=== PATIENT | male | born 1955 ===

== ENCOUNTER 2020-07-14 06:28 | Observation (INO) ==
--- NOTE | 2020-06-29 13:57 | PAT Medication Instructions ---
Medication Instructions Date of Service June 29, 2020 Home Medications atenolol 25 mg tablet 25 mg PO QPM calcium polycarbophil 625 mg tablet 1,250 mg PO QAM cholecalciferol (vitamin D3) 10 mcg (400 unit) capsule 10 mcg PO QAM gabapentin 100 mg capsule 100 mg PO BID levothyroxine 88 mcg tablet 88 mcg PO QAM lisinopril 5 mg tablet 5 mg PO QAM mecobalamin (vitamin B12) 5,000 mcg lozenge 5,000 mcg PO QAM acetaminophen [Tylenol Extra Strength] 1,000 mg PO Q6H PRN latanoprost (PF) 1 drp OPHTHALMIC (EYE) HS DO NOT take the morning of surgery calcium polycarbophil 625 mg tablet 1,250 mg PO QAM cholecalciferol (vitamin D3) 10 mcg (400 unit) capsule 10 mcg PO QAM lisinopril 5 mg tablet 5 mg PO QAM mecobalamin (vitamin B12) 5,000 mcg lozenge 5,000 mcg PO QAM Take morning of surgery With a small sip of water, OTHERWISE NOTHING TO EAT OR DRINK AFTER MIDNIGHT: gabapentin 100 mg capsule 100 mg PO BID levothyroxine 88 mcg tablet 88 mcg PO QAM acetaminophen [Tylenol Extra Strength] 1,000 mg PO Q6H PRN (if needed) Take evening before surgery atenolol 25 mg tablet 25 mg PO QPM gabapentin 100 mg capsule 100 mg PO BID acetaminophen [Tylenol Extra Strength] 1,000 mg PO Q6H PRN (if needed) latanoprost (PF) 1 drp OPHTHALMIC (EYE) HS Other Notes If you have any questions please call us at [phone] or [phone] or [phone] or [phone]
--- NOTE | 2020-07-04 12:55 | Anesthesiology Consultation ---
Date of Service July 04, 2020 Assessment & Plan (1) Encounter for pre-operative examination: COVID Status: As of 07/04 assessment, patient denies travel to endemic area, known exposure/sick contacts, or symptoms of COVID19. Patient instructed that they and their household members must follow strict social distancing guidelines, wear a mask in public and avoid travel/events/gatherings for 14 days prior to surgery -- specifically denies Thanksgiving plans. Preoperative COVID19 testing to be completed prior to surgery per surgeon's arrangements (to be done 07/08 at [facility]). Patient made aware to self-isolate as much as possible between COVID testing and surgery. Chart Review Chart Review: Acceptable Risk for Surgery and Patient seen in Pre Admission Testing Teaching & Discussion Instructed NPO after midnight before surgery, except medications with 15 cc of water. Medication instructions provided according to the PAT guidelines. History Surgery Operation Date: 07/14/20 13:45 Proposed Procedures p Right Total Knee Arthroplasty - Ryley Iniguez MD Height/Weight Height: 5 ft 7 in Weight: 105.6 kg Allergies Allergy/AdvReac Type Severity Reaction Status Date / Time No Known Allergies Allergy Verified 06/29/20 11:06 Medications Home Medications Medication Instructions Recorded Confirmed Last Taken atenolol 25 mg tablet 25 mg PO QPM 06/24/20 06/29/20 Unknown calcium polycarbophil 625 mg tablet 1,250 mg PO QAM 06/24/20 06/29/20 Unknown cholecalciferol (vitamin D3) 10 10 mcg PO QAM 06/24/20 06/29/20 Unknown mcg (400 unit) capsule gabapentin 100 mg capsule 100 mg PO BID 06/24/20 06/29/20 Unknown levothyroxine 88 mcg tablet 88 mcg PO QAM 06/24/20 06/29/20 Unknown lisinopril 5 mg tablet 5 mg PO QAM 06/24/20 06/29/20 Unknown mecobalamin (vitamin B12) 5,000 5,000 mcg PO QAM 06/24/20 06/29/20 Unknown mcg lozenge acetaminophen [Tylenol Extra 1,000 mg PO Q6H PRN 06/29/20 06/29/20 Unknown Strength] latanoprost (PF) 1 drp OPHTHALMIC (EYE) HS 06/29/20 06/29/20 Unknown Past Medical History Medical History Bilateral primary osteoarthritis of knee Hemorrhoids Hepatitis C HX TREATED BLOOD LEVELS NORMAL Hypertension Hypothyroidism Exercise / Class Metabolic Activity II 4-5 Yardwork/Stairs/Walk up hill Past Family History Family History (Updated 06/29/20 @ 11:14 by Dolores Ly RN) Father Family history of diabetes mellitus Past Surgical History Surgical History History of cholecystectomy History of colonoscopy Past Anesthesia History No Hx of Anesthesia Complications and No Family Hx of Anesthesia Complications History of PONV No Hx of PONV and Hx of Motion Sickness Social History Smoking Status: Former smoker Do You Dip or Chew Tobacco: No Smoking End Date: QUIT 1997 Hx Alcohol Use: No Hx Substance Use: No Review of Systems Pt denies any recent chest pain, shortness of breath, palpitations, cough, fever, URI. +occ diet-dependent acid reflux. Physical Exam Vital Signs BP: 121/70 P: 65bpm SPO2: 96% RA T: 98.0 F R: 12 ENMT Mouth: + poor dentition and + chipped teeth; no dental restorations and no loose teeth Thyromental Distance: > or= 3.5 Finger Breadths Mallampati Class: III Neck + short neck, + limited neck extension (mildly) and + facial hair (short singh and mustache) Respiratory normal respiratory effort, lungs clear to auscultation + prolonged expiratory phase Cardiovascular RRR, no murmur, no edema Vessels: no carotid bruit Testing Laboratory Results 07/04/20 13:03 07/04/20 13:03 PT 10.8 Seconds (9.0-12.0) 07/04/20 13:03 INR 1.0 (0.9-1.1) 07/04/20 13:03 APTT 28.8 Seconds (21.0-31.0) 07/04/20 13:03 Blood Type A Positive 07/04/20 13:03 Antibody Screen NEGATIVE 07/04/20 13:03 Electrocardiogram Date: 07/04/20 Findings: + SB @ (57bpm) *unconfirmed Chest X-Ray Date: 07/04/20 Findings: + NAD
--- NOTE | 2020-07-04 13:26 | XRay Report ---
XR chest Pre-admission PA/Lat HISTORY: 64 years-old Male pat preoperative exam. No acute chest complaints COMPARISON: None TECHNIQUE: PA and lateral views of the chest FINDINGS: Cardiomediastinal and hilar silhouettes are within normal limits. No pneumothorax, pleural effusion, overt pulmonary edema or airspace consolidation typical for pneumonia. There is minimal inferior segm ent lingular scarring/atelectasis. Degenerative changes of the shoulders and spine. Surgical clips pr oject over the upper abdomen. IMPRESSION: No acute process. ACT 112: Negative or not required by law. The above report was generated using voice recognition software. It may contain grammatical, syntax o r spelling errors. Electronically signed by: Cale Ruiz M.D. 07/04/2020 1:25 PM
[2020-07-04 14:24] LABS: Basophils # (auto) 0.02 K/uL (0-0.2); Basophils % (auto) 0.2 %; Eosinophils # (auto) 0.12 K/uL (0-0.5); Eosinophils % (auto) 1.3 %; Hemoglobin 15.3 g/dL (14.0-18.0); Immature Granulocytes # (auto) 0.05 K/uL (0.00-0.02); Immature Granulocytes % (auto) 0.5 %; Lymphocytes # (auto) 2.13 K/uL (1.2-3.4); Lymphocytes % (auto) 22.3 %; Mean Corpuscular Hemoglobin 29.3 pg (25-34); Mean Corpuscular Hgb Conc 32.6 g/dL (32-36); Mean Platelet Volume 10.3 fL (7.4-10.4); Monocytes # (auto) 0.85 K/uL (0.11-0.59); Monocytes % (auto) 8.9 %; Neutrophils # (auto) 6.39 K/uL (1.4-6.5); Neutrophils % (auto) 66.8 %; Platelet Count 195 K/uL (130-400); RDW Standard Deviation 42.5 fL (36.4-46.3); Red Blood Count 5.22 M/uL (4.7-6.1); White Blood Count 9.56 K/uL (4.8-10.8)
[2020-07-04 14:34] LABS: BUN Creatinine Ratio 17.9 (10-20); Calcium 9.6 mg/dl (8.5-10.1); Creatinine Clr Calc Pharmacy 54.7 ml/min; Est GFR (African American) 53.7; Est GFR (Non-African American) 46.3; Potassium 4.7 mmol/L (3.5-5.1)
[2020-07-04 14:36] LABS: Partial Thromboplastin Time 28.8 Seconds (21.0-31.0); Prothrombin Time 10.8 Seconds (9.0-12.0)
--- NOTE | 2020-07-05 06:17 | Electrocardiogram Report ---
Test Reason : Blood Pressure : / mmHG Vent. Rate : 057 BPM Atrial Rate : 057 BPM P-R Int : 142 ms QRS Dur : 086 ms QT Int : 422 ms P-R-T Axes : 063 071 063 degrees QTc Int : 410 ms Sinus bradycardia Otherwise normal ECG No previous ECGs available Confirmed by Harish Sen ([id number]) on 07/05/2020 6:17:07 AM Referred By: Ryley Iniguez Confirmed By:Harish Sen
[~2020-07-14 06:28] MED LIST: ACETAMINOPHEN 500 MG TAB PO SCH; BUPIVACAINE LIPOSOME/PF 266 MG, BUPIVACAINE/EPINEPHRINE 50 ML, SODIUM CHLORIDE 0.9% 30 ... INFIL SCH; FAMOTIDINE 20 MG TAB PO SCH; GABAPENTIN 300 MG CAP PO SCH; LR 15ML/HR IV SCH; LR 500ML BOLUS, THEN 15ML/HR IV SCH; ROPIVACAINE 0.5% HCL/PF 150 MG, BUPIVACAINE 0.5% MPF 30 ML, EPINEPHrine 30MG/30ML (OR U... INSTIL SCH; TRANEXAMIC ACID 1,000 MG **IV Intra-op IV SCH; ceFAZolin 2000MG 2,000 MG/15 ML SYR IV SCH
[2020-07-14] MEDS ORDERED: BUPIVACAINE 0.5 % 5 MG/1 ML PF 10ML VIAL ONE (06:42)
--- NOTE | 2020-07-14 07:01 | History & Physical Bridge Note ---
Date of Service July 14, 2020 History & Physical Bridge Note I have examined the patient, reviewed the History & Physical and in the interval since the performance of the History & Physical I have noted the following changes of clinical significance: no changes noted
[2020-07-14] MEDS ORDERED: MIDAZOLAM HCL 1 MG/ML 2ML VIAL ONE (08:15)
[2020-07-14] MEDS ORDERED: fentaNYL citrate 100 MCG/2 ML VIAL ONE (08:15)
[2020-07-14] MEDS ORDERED: BUPIVACAINE LIPOSOME 1.3% 266 MG/20 ML VIAL ONE (09:19)
[2020-07-14] MEDS ORDERED: SODIUM CHLORIDE 0.9% PF 50 ML VIAL ONE (09:19)
[2020-07-14] MEDS ORDERED: EPINEPHrine INJ 1 MG/ML AMP ONE (09:20)
[2020-07-14] MEDS ORDERED: BACITRACIN INJ 50,000 UNIT VIAL ONE (09:20)
[2020-07-14] MEDS ORDERED: BUPIVACAINE 0.25% 30 ML VIAL ONE (09:21)
[2020-07-14] MEDS ORDERED: PROPOFOL IV EMULSION 10 MG/ML 20 ML VIAL IV ONE ×2 (09:48→11:08)
[2020-07-14] MEDS ORDERED: DEXAMETHASONE SOD INJ 4 MG/ML VIAL ONE (09:48)
[2020-07-14] MEDS ORDERED: ONDANSETRON INJ 2 MG/ML 2 ML VIAL ONE (09:48)
[2020-07-14] MEDS ORDERED: LIDOCAINE HCL 2% 2 ML VIAL/AMP(20MG/ML) INFIL ONE (09:48)
--- NOTE | 2020-07-14 11:18 | Post Operative Brief Note ---
PG Immediate Post Op with CF Date of Surgery July 14, 2020 Pre & Post Diagnosis Operation Date: 07/14/20 09:20 Pre-Op Diagnosis: Right Knee Advanced Degenerative Joint Disease Post-Op Diagnosis: Right Knee Advanced Degenerative Joint Disease I identified the patient and participated in the time-out.: Yes Procedure Operation Date: 07/14/20 09:20 Actual Procedures p Right Total Knee Arthroplasty(Right) - Ryley Iniguez MD Surgeon Ryley Iniguez MD Driveway Attendant LEANNE Galindo Estimated Blood Loss 50 Findings Consistent with Post-Op Diagnosis Fluids 1400 cc Specimens Specimen Description: A. Right Knee Bone and Tissue Drains Rosen Catheter Anesthesia Type Spinal MAC Complications none Disposition Accompanied Patient To Recovery: No Disposition: Recovery Room
--- NOTE | 2020-07-14 11:39 | Operative Report ---
Post Operative Report Pre & Post Diagnosis Operation Date: 07/14/20 09:20 Pre-Op Diagnosis: Right Knee Advanced Degenerative Joint Disease Post-Op Diagnosis: Right Knee Advanced Degenerative Joint Disease I identified the patient and participated in the time-out.: Yes Procedure Operation Date: 07/14/20 09:20 Actual Procedures p Right Total Knee Arthroplasty(Right) - Ryley Iniguez MD Surgeon Ryley Iniguez MD Geospatial Information Scientist LEANNE Galindo Estimated Blood Loss 50 Findings Consistent with Post-Op Diagnosis Operative findings revealed advanced right knee DJD with extensive grade 4 [id number] disease of the medial compartment and less extensive but significant grade 4 changes the patellofemoral compartment. He had a varus deformity to his knee. Moderate sized knee joint effusion. Fluids 1400 cc. Specimens Right knee sent for pathology. 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 He has been through extensive conservative care through the [facility]. He failed all this treatment. He continued to have persistent limiting knee pain and discomfort. He elected to see with a right total knee arthroplasty. Description of Procedure Operative implants consisted of: 1. Biomet Vanguard size 65 right posterior stabilized femoral component. 2. Biomet size 75 tibial tray. 3. 10 mm posterior stabilized polyethylene insert. 4. 31 x 8 all polypatella. The patient was taken to the operating identified placed in the operating table supine position but all contact areas were properly padded. IV antibiotics 5 by anesthesia team. A spinal anesthetic and abductor canal block had provided in the holding area. Rosen catheter was placed in sterile fashion. A right thigh turn was then placed in the right lower extremity was then prepped and draped in the usual sterile fashion. The right leg was elevated exsanguinated with use of an Esmarch and turns placed at 300 mmHg. An anterior approach to the right knee was then performed to longitudinal incision centered over the patella. Sharp dissection got through subcutaneous tissues down to the extensor mechanism. A medial parapatellar arthrotomy incision was made. Some subperiosteal dissection was carried out medially for the fat pad was dissected from each patella tendon. Lateral patellofemoral ligament was released. Patella was subluxated laterally and the knee was flexed. The osteophytes were taken off distal femur. The ACL and PCL were then released from distal femur and the tibia subluxated anteriorly. External tibial alignment jig was then placed in the interface the tibia and adjusted 14 mm medially. Proximal tibial cut was made remove about a millimeter or 2 of bone from most deficient aspect medial tibial plateau. Tibia sized to a size 75. Some osteophytes taken off medial and posterior medially. Attention drawn to the femur. The distal femur was entered with a sharp drop with intramedullary canal was suction. A right 6 degree valgus cutting guide was placed. Distal femoral cutting block was pinned in place but distal femoral cut was made to take an additional 3 mm bone off distal femur. The femur was then sized to a size 65. The AP cutting block was pinned parallel to the epicondylar axis which was 3 degrees of external rotation with anterior cut, anterior chamfer, posterior cut, posterior chamfer cuts were made. The box cutting guide was placed in the just slight lateral and the box cut was made. The knee was flexed. The remnants of the medial lateral menisci were excised. The osteophytes were taken off the posterior aspect of the femur. A trial femoral component was placed. The tibial tray was pinned in maximum external rotation and the drill and stem punch were used to create defect in proximal tibia for the tibial tray. Knee was then trialed and the 10 mm insert fit most appropriately. Attention drawn the patella. The patella was cleaned of all soft tissues. Patella thickness measured 22 mm in thickness and was cut down to 14. Sized to a size 31 patella. Locals were drilled for 31 patella. Lateral osteophyte is moved. Patella button was placed. The knee was taken through range of motion patella tracked nicely with no thumbs test. Attention drawn to placing permanent components. All trial components were removed. A bone plug was placed in the distal femur limit blood loss put a double batch [place]os G cement was mixed. Biomet Providence Therapyguard size 65 right posterior stabilized femoral component, size 75 tibial tray, a 10 mm posterior stabilized polyethylene insert, and a 31 x 8 all polypatella then cemented in place. Knee was brought out in full extension total cement hardened. Final cement checkup then performed. Pericapsular tissues were injected with total 100 cc of combination of 20 cc of Exparel, 30 cc normal saline, 50 cc of quarter percent Marcaine with epinephrine. Patient did receive 1 g tranexamic acid. The tourniquet was then let down for final tourniquet time 52 minutes. Hemostasis assured use electrocautery. Extensor mechanism closed with combination 1 PDS suture #1 Vicryl suture in [id number] fashion. Extensor mechanism checked found to be intact the subcutaneous tissue then closed with 2 Dexon suture in a buried knot fashion skin was closed skin jordyn. Leg was then cleaned and dried and sterile dressed with Xeroform, 4 x 4's, sterile cast padding, Tonio bandage were applied. Patient then transferred to the recovery room in stable condition. The patient tolerated the procedure well and there were no complications. Ernie Galindo, my physician assistant farm operations manager, was present for the entire procedure. His assistance was essential and required for appropriate patient positioning, prepping and draping, surgical exposure, performing the technical details of the operation, placement the implants, closure of the wound, and placement of the sterile bandage. I attest to the content of the Intraoperative Record and any orders documented therein. Any exceptions are noted below.
--- NOTE | 2020-07-14 11:51 | XRay Report ---
RIGHT KNEE 2 VIEWS History: Right total knee arthroplasty. Degenerative arthritis. Postop. FINDINGS: The patient is status post a right total knee arthroplasty. The hardware is intact. No frac ture or dislocation. Skin jordyn are in place. IMPRESSION: Right total knee arthroplasty. No evidence for hardware complication. ACT 112: Negative or not required by law. Electronically signed by: Richmond Abdalla M.D. 07/14/2020 11:50 AM
[2020-07-14] MEDS ORDERED: ATROPINE SULFATE 0.1 MG/ML 10ML SYR IV PRN (12:18)
[2020-07-14] MEDS ORDERED: fentaNYL citrate 100 MCG/2 ML VIAL IV PRN (12:18)
[2020-07-14] MEDS ORDERED: ONDANSETRON INJ 2 MG/ML 2 ML VIAL IV PRN ×2 (12:18→12:51)
[2020-07-14] MEDS ORDERED: ePHEDrine sulfate 50 MG/ML AMP IV PRN (12:18)
--- NOTE | 2020-07-14 12:19 | Anesthesiology Progress Note ---
Date of Service July 14, 2020 Anesthesia Post Procedure Vital Signs Vital Signs: Temp Pulse Pulse Resp BP BP Pulse Ox 07/14/20 12:10 56 L 14 122/56 L 100 07/14/20 12:00 49 L 10 L 113/67 100 07/14/20 11:50 51 L 10 L 117/66 100 07/14/20 11:40 50 L 15 129/72 99 07/14/20 11:30 51 L 18 114/66 100 07/14/20 11:23 97.9 F 58 L 16 116/60 99 07/14/20 07:55 59 L 18 135/78 97 07/14/20 07:29 98.1 F 67 18 130/84 95 Pain Intensity Right Hand: Pain Intensity: 7 Transfer of Care Handoff Completed per policy Notes Mental Status: alert / awake / arousable and participated in evaluation Patient Amnestic to Procedure: Yes Nausea / Vomiting: adequately controlled Pain: adequately controlled Airway Patency, RR, SpO2: stable & adequate BP & HR: stable & adequate Hydration State: stable & adequate Neuraxial Anesthesia: was administered and sensory block is resolving Anesthetic Complications: no major complications apparent and Pt Satisfied with anesthetic care
[2020-07-14] MEDS ORDERED: METOCLOPRAMIDE HCL INJ 5 MG/ML 2 ML VIAL IV PRN (12:51)
[2020-07-14] MEDS ORDERED: TAMSULOSIN HCL 0.4 MG CAP PO PRN (12:51)
[2020-07-14] MEDS ORDERED: ALUMINUM/MAGNESIUM SUSP 30 ML UDC PO PRN (12:51)
[2020-07-14] MEDS ORDERED: NALOXONE HCL 0.4 MG/1 ML VIAL/CARP IV PRN (12:51)
[2020-07-14] MEDS ORDERED: bisacodyL 10 MG SUPP PR PRN (12:51)
[2020-07-14] MEDS ORDERED: MAGNESIUM HYDROXIDE SUSP 30 ML UDC PO PRN (12:51)
[2020-07-14] MEDS ORDERED: NO NSAIDS SCH (13:00)
[2020-07-14] MEDS: SODIUM CHLORIDE 0.9% 1000ML 1,000 ML IV SCH ×2 (13:32→21:07)
[2020-07-14] MEDS: ACETAMINOPHEN 500 MG TAB PO SCH ×2 (14:54→20:55)
[2020-07-14] MEDS: Scopolamine CHECK PATCH PLACEMENT SCH ×2 (15:39→23:18)
[2020-07-14] MEDS: oxyCODONE HCL IR 5 MG TAB (IMMEDIATE RELEASE) PO PRN ×2 (16:33→23:30)
[2020-07-14] MEDS: FERROUS GLUCONATE 324 MG TAB PO SCH (16:34)
[2020-07-14] MEDS: ASCORBIC ACID 500 MG TAB PO SCH (16:34)
[2020-07-14] MEDS: ceFAZolin 2000MG 2,000 MG/15 ML SYR IV SCH (17:25)
[2020-07-14] MEDS ORDERED: TRANEXAMIC ACID / 0.7% NACL 1,000 MG/100 ML BAG IV SCH (17:30)
--- NOTE | 2020-07-14 18:00 | Progress Notes ---
DATE: 07/14/2020 SUBJECTIVE: A 64-year-old gentleman is postop from right knee replacement. He is doing well. Really not having much pain yet. No chest pain or shortness of breath. Not feeling dizzy or lightheaded. He did take one oxycodone tablet and is doing well with that. OBJECTIVE: VITAL SIGNS: Temperature 36.8. Vital signs stable. GENERAL: Shows a pleasant, middle-aged male. He is sitting up in bed and talking on the phone when I walked in this evening. LUNGS: Clear to auscultation. HEART: Regular rate and rhythm. ABDOMEN: Soft, nontender, nondistended. EXTREMITIES: Grossly neurovascularly intact except as follows: Examination of the right leg reveals the leg to be well aligned. Dressing is clean, dry, and intact. He can dorsiflex and plantarflex his foot appropriately. He has got brisk refill. X-RAYS: X-rays of the right knee from recovery room are reviewed. It shows right cemented posterior stabilized total knee arthroplasty. Components looked to be in good position. No signs of problems. ASSESSMENT: A 64-year-old gentleman postoperative from right knee replacement, doing well. Pain is controlled. He is neurologically intact. PLAN: 1. DVT prophylaxis including thigh-high TEDs, SCDs, and aspirin twice a day. 2. PT/OT. Weight bear as tolerated. Right total knee protocol. 3. Pain control, doing well with current pain regimen. 4. Disposition: He is hoping to be discharged to home with likely some home health once adequately recovered and medically stable.
[2020-07-14] MEDS: HYDROmorphone INJ 0.5 MG/0.5 ML SYR IV PRN (19:54)
[2020-07-14] MEDS: TAPENTADOL HCL ER 50 MG TABCR PO SCH (20:54)
[2020-07-14] MEDS: GABAPENTIN 100 MG CAP PO SCH (20:54)
[2020-07-14] MEDS: ASPIRIN 81 MG ECTAB PO SCH (20:56)
[2020-07-14] MEDS: ATENOLOL 25 MG TABLET PO SCH (20:56)
[2020-07-14] MEDS: SENNA 8.6 MG TAB PO SCH (20:56)
[2020-07-14] MEDS: DOCUSATE SODIUM 100 MG CAP PO SCH (20:56)
[2020-07-14] MEDS: LATANOPROST 0.005% OP SOLN 2.5 ML BTL OP SCH (21:04)
[2020-07-15] MEDS: ceFAZolin 2000MG 2,000 MG/15 ML SYR IV SCH (00:28)
[2020-07-15] MEDS: HYDROmorphone INJ 0.5 MG/0.5 ML SYR IV PRN (04:23)
[2020-07-15] MEDS: LEVOTHYROXINE SODIUM 88 MCG TABLET PO SCH (04:23)
[2020-07-15] MEDS: ACETAMINOPHEN 500 MG TAB PO SCH ×3 (04:23→20:59)
[2020-07-15 06:09] LABS: Hematocrit (blood only) 42.5 % (42-52); Hemoglobin 13.7 g/dL (14.0-18.0); Mean Corpuscular Hemoglobin 29.1 pg (25-34); Mean Corpuscular Hgb Conc 32.2 g/dL (32-36); Mean Corpuscular Volume 90.2 fL (80-100); Mean Platelet Volume 9.9 fL (7.4-10.4); Platelet Count 170 K/uL (130-400); RDW Coefficient of Variation 12.9 % (11.5-14.5); RDW Standard Deviation 42.7 fL (36.4-46.3); Red Blood Count 4.71 M/uL (4.7-6.1); White Blood Count 16.68 K/uL (4.8-10.8)
[2020-07-15 06:37] LABS: BUN Creatinine Ratio 11.3 (10-20); Calcium 8.6 mg/dl (8.5-10.1); Creatinine Clr Calc Pharmacy 44.3 ml/min; Est GFR (African American) 42.2; Est GFR (Non-African American) 36.4; Potassium 4.6 mmol/L (3.5-5.1)
[2020-07-15] MEDS ORDERED: dexAMETHasone 4 MG TAB PO SCH (08:00)
[2020-07-15] MEDS: TAPENTADOL HCL ER 50 MG TABCR PO SCH ×2 (09:02→20:58)
[2020-07-15] MEDS: oxyCODONE HCL IR 5 MG TAB (IMMEDIATE RELEASE) PO PRN (09:02)
--- NOTE | 2020-07-15 09:02 | Anesthesiology Progress Note ---
Date of Service July 15, 2020 Anesthesia Post Procedure Vital Signs Vital Signs: Temp Pulse Pulse Resp BP Pulse Ox 07/15/20 06:56 36.7 C 51 L 19 160/80 H 97 07/15/20 03:02 36.6 C 56 L 16 155/87 H 95 07/14/20 23:04 36.7 C 58 L 16 162/80 H 98 07/14/20 20:09 37.1 C 54 L 17 147/77 H 97 07/14/20 16:05 36.8 C 51 L 18 169/79 H 99 07/14/20 14:03 20 140/75 100 07/14/20 13:27 36.6 C 20 132/81 100 07/14/20 12:15 36.3 C L 54 L 12 134/70 99 07/14/20 12:10 56 L 14 122/56 L 100 07/14/20 12:00 49 L 10 L 113/67 100 07/14/20 11:50 51 L 10 L 117/66 100 07/14/20 11:40 50 L 15 129/72 99 07/14/20 11:30 51 L 18 114/66 100 07/14/20 11:23 36.6 C 58 L 16 116/60 99 Notes Mental Status: alert / awake / arousable Patient Amnestic to Procedure: Yes Nausea / Vomiting: adequately controlled Pain: adequately controlled Airway Patency, RR, SpO2: stable & adequate BP & HR: stable & adequate Hydration State: stable & adequate Neuraxial Anesthesia: was administered and sensory block resolved Anesthetic Complications: no major complications apparent and Pt Satisfied with anesthetic care
[2020-07-15] MEDS: FERROUS GLUCONATE 324 MG TAB PO SCH ×2 (09:03→17:49)
[2020-07-15] MEDS: CALCIUM POLYCARBOPHIL 625MG TAB PO SCH (09:04)
[2020-07-15] MEDS: CYANOCOBALAMIN (VITAMIN B-12) 2,500 MCG TAB.SUBL SL SCH (09:04)
[2020-07-15] MEDS: ASCORBIC ACID 500 MG TAB PO SCH ×2 (09:05→17:49)
[2020-07-15] MEDS: GABAPENTIN 100 MG CAP PO SCH ×2 (09:06→20:58)
[2020-07-15] MEDS: lisinopril 5 MG TAB PO SCH (09:06)
[2020-07-15] MEDS: DOCUSATE SODIUM 100 MG CAP PO SCH ×2 (09:06→20:58)
[2020-07-15] MEDS: MULTIVITAMIN TAB PO SCH (09:07)
[2020-07-15] MEDS: ASPIRIN 81 MG ECTAB PO SCH ×2 (09:07→20:58)
[2020-07-15] MEDS: CHOLECALCIFEROL 400 UNITS 10 MCG TAB PO SCH (09:07)
--- NOTE | 2020-07-15 10:53 | Progress Notes ---
DATE: 07/15/2020 SUBJECTIVE: A 64-year-old gentleman postop day 1 from a right knee replacement. He is doing okay. Had quite a bit of pain overnight, but doing better with some pain medicine. No chest pain or shortness of breath. Not feeling dizzy or lightheaded. OBJECTIVE: VITAL SIGNS: Temperature 36.7. Vital signs stable. GENERAL: Shows a pleasant, middle-aged male. He is sitting up in bed, looks reasonably comfortable this morning. EXTREMITIES: Examination of the right leg reveals the leg to be well aligned. He can dorsiflex and plantarflex his foot appropriately. He can do a straight leg raise with a lot of effort. He is neurologically intact. LABORATORY DATA: Hemoglobin 13.7. Hematocrit 42.5. Electrolytes are fairly stable. Creatinine just slightly elevated at 1.88, baseline is 1.5. ASSESSMENT: A 64-year-old gentleman postoperative day 1 from a right knee replacement, doing pretty well. His pain is controlled. He is neurologically intact. Creatinine is a little bit elevated. We will encourage oral intake and follow his creatinine. PLAN: 1. DVT prophylaxis including thigh-high TEDs, SCDs, and aspirin twice a day. 2. PT/OT. Weight bear as tolerated. Right total knee protocol. 3. Pain control, doing okay with current pain regimen. 4. Disposition. He is hoping to be discharged to home with some home health. We are going to see how therapy goes today. We will need to follow his creatinine and encourage p.o. intake today. Possible discharge tomorrow.
[2020-07-15] MEDS: Scopolamine CHECK PATCH PLACEMENT SCH ×3 (13:11→21:32)
[2020-07-15] MEDS: ATENOLOL 25 MG TABLET PO SCH (20:58)
[2020-07-15] MEDS: SENNA 8.6 MG TAB PO SCH (20:58)
[2020-07-15] MEDS: LATANOPROST 0.005% OP SOLN 2.5 ML BTL OP SCH (20:59)
[2020-07-16] MEDS: ACETAMINOPHEN 500 MG TAB PO SCH (03:35)
[2020-07-16] MEDS: LEVOTHYROXINE SODIUM 88 MCG TABLET PO SCH (03:36)
[2020-07-16 04:15] LABS: BUN Creatinine Ratio 15.2 (10-20); Calcium 8.9 mg/dl (8.5-10.1); Creatinine Clr Calc Pharmacy 48.7 ml/min; Est GFR (African American) 47.3; Est GFR (Non-African American) 40.8; Potassium 4.6 mmol/L (3.5-5.1)
[2020-07-16] MEDS: Scopolamine CHECK PATCH PLACEMENT SCH (08:00)
[2020-07-16] MEDS: ASCORBIC ACID 500 MG TAB PO SCH (09:00)
[2020-07-16] MEDS: CALCIUM POLYCARBOPHIL 625MG TAB PO SCH (09:00)
[2020-07-16] MEDS: GABAPENTIN 100 MG CAP PO SCH (09:00)
[2020-07-16] MEDS: CHOLECALCIFEROL 400 UNITS 10 MCG TAB PO SCH (09:00)
[2020-07-16] MEDS: ASPIRIN 81 MG ECTAB PO SCH (09:00)
[2020-07-16] MEDS: FERROUS GLUCONATE 324 MG TAB PO SCH (09:00)
[2020-07-16] MEDS: CYANOCOBALAMIN (VITAMIN B-12) 2,500 MCG TAB.SUBL SL SCH (09:00)
[2020-07-16] MEDS: TAPENTADOL HCL ER 50 MG TABCR PO SCH (09:00)
[2020-07-16] MEDS: lisinopril 5 MG TAB PO SCH (09:00)
[2020-07-16] MEDS: DOCUSATE SODIUM 100 MG CAP PO SCH (09:00)
[2020-07-16] MEDS: MULTIVITAMIN TAB PO SCH (09:00)
--- NOTE | 2020-07-16 13:40 | Progress Notes ---
DATE: 07/16/2020 SUBJECTIVE: A 64-year-old gentleman, postoperative day 2 from a knee replacement. He is doing pretty well. Pain is much better today. No chest pain or shortness of breath. Not feeling dizzy or lightheaded. Feeling like he is ready to go home. OBJECTIVE: GENERAL: Shows a pleasant, middle-aged male. He is sitting up in bed, looks quite comfortable this morning. EXTREMITIES: Examination of the leg and knee reveals the dressing to be clean, dry, and intact. He can dorsiflex and plantarflex his foot appropriately. Calf is soft and supple. He is neurologically intact. ASSESSMENT: A 64-year-old gentleman postop day 2 from a knee replacement, doing well. Pain is improved. He is neurologically intact. PLAN: 1. DVT prophylaxis including thigh-high TEDs, SCDs, and aspirin twice a day. 2. PT/OT. He can weightbear as tolerated. Right total knee protocol. 3. Pain control, doing well with current pain regimen. We will continue Tylenol around the clock and oxycodone as needed. 4. Disposition: Plan to discharge to home with some home health later today.
--- NOTE | 2020-07-19 09:55 | Discharge Summary ---
Date of Service July 19, 2020 Admission HPI Per Admitting Provider Documented in the H & P Admission Exam (Per Admitting) Constitutional Documented in the H & P Discharge Data Consultations 07/14/20 12:51 Consult Case Management - Discharge Planning Routine Procedures Performed Operation Date: 07/14/20 09:20 Actual Procedures p Right Total Knee Arthroplasty(Right) - Ryley Iniguez MD Hospital Course (1) Status post total right knee replacement: This patient is a 64 year old male admitted on 07/14/20 and underwent total knee arthroplasty. He tolerated the procedure well and there were no complications. Transferred to the PACU post op and later to the orthopedic floor for further care. He was given ancef for antibiotic prophylaxis. He was also given MOSES stockings, SCDs, and aspirin for DVT prophylaxis. Hemoglobin, hematocrit, and vital signs were monitored during his hospital stay and remained stable. Did not require any blood transfusions. There were no complications during his hospital stay. By post op day #2 the patient was tolerating a regular diet, pain was reasonably controlled with oral pain medicine, and he was participating in physical therapy. On post op day #2 the patient was discharged home and set up with home health care. He was given printed discharge instructions including prescriptions for extra strength tylenol, aspirin, and oxycodone. Continue physical therapy, weight bearing as tolerated. Continue MOSES stockings. Follow up approximately 2 weeks post op or sooner if there are problems or concerns. Coding Level of Care Code None Diagnoses Status post total right knee replacement Z96.651
== END 2020-07-16 11:57 | disposition home health service (06) ==
LOC: ASU 06:28 → 3E 06:28